=== PATIENT | female | born 2000 | race Caucasian/White ===

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

== ENCOUNTER 2021-02-20 11:11 | Emergency (ER) | payer OTHER ==
[~2021-02-20] VITALS: Ht 167.6 cm; Wt 59.0 kg
[~2021-02-20 11:11] MED LIST: BIRTH CONTROL; CYCLOBENZAPRINE5 MG PO; MOBIC15 MG PO
[2021-02-20] MEDS ORDERED: CELEXA 10 MG TA10 M1 PO (11:43)
[2021-02-20] MEDS ORDERED: TRAZADONE (11:44)
[2021-02-20 12:12] LABS: ABSOLUTE NEUTROPHILS 6.4 thou/uL (1.4-8.2); BASOPHILS 0.2 % (0.0-2.0); EOSINOPHILS 0.2 % (0.0-3.0); HEMATOCRIT 45.3 % (37.0-47.0); HEMOGLOBIN 15.4 gm/dL (12.0-15.0); LYMPHOCYTES 3.7 % (24.0-44.0); MCHC 33.9 g/dL (28.0-37.0); MCV 88.5 fL (80.0-100.0); MONOCYTES 8.2 % (1.0-8.0); PLATELET COUNT 212 thou/uL (150-400); POLYS 87.7 % (36.0-66.0); RBC 5.12 mil/uL (4.20-5.00); RDW 14.3 % (10.5-14.5); WBC 7.3 thou/uL (4.0-11.0)
[2021-02-20 12:21] LABS: CALCIUM 8.8 mg/dL (8.5-10.1); CREATININE 0.8 mg/dL (0.6-1.0); POTASSIUM 3.8 mmol/L (3.5-5.1)
[2021-02-20 12:26] LABS: ALBUMIN 4.3 g/dL (3.4-5.0); TOTAL BILIRUBIN 0.6 mg/dL (0.2-1.0); TOTAL PROTEIN 8.3 g/dL (6.4-8.2)
[2021-02-20 13:28] VITALS: BP 99/58
[2021-02-20] MEDS ORDERED: ZOFRAN ODT4 MG PO (13:28)
== END 2021-02-20 13:28 | disposition home or self-care (01) ==
LOC: ER 11:11
PROVIDERS: Emergency Medicine
DX: R11.2 Nausea with vomiting, unspecified (principal); R19.7 Diarrhea, unspecified; Z79.899 Other long term (current) drug therapy